=== PATIENT | female | born 1990 | race Caucasian/White ===

== ENCOUNTER 2016-10-03 19:00 | Emergency (ER) | payer OTHER ==
[~2016-10-03] VITALS: Ht 167.6 cm; Wt 126.3 kg
[~2016-10-03 19:00] MED LIST: ADDERALL5 MG PO; AMOXICILLIN500 M1 PO; Chromagen, Feogen, M PO; IBUPROFEN800 MG PO; Motrin PO; NO HOME MEDS; NOHOMEMEDS; PRENATAL TABLE1 EAC3 PO; SINGULAIR10 MG PO; SINGULAIR5 MG PO; TYLENOL EXTRA500 MG PO
[2016-10-03 20:25] VITALS: BP 120/75
== END 2016-10-03 20:26 | disposition home or self-care (01) ==
LOC: EME 19:00
DX: O9A.212 Injury, poisoning and certain other consequences of external causes complicating pregnancy, second trimester (principal); S06.0X0A Concussion without loss of consciousness, initial encounter; Y04.2XXA Assault by strike against or bumped into by another person, initial encounter; Z87.891 Personal history of nicotine dependence
CPT/HCPCS: 99281; 99283

== ENCOUNTER → 2016-11-27 | Outpatient (CLI) | payer OTHER ==
[~2016-11-27] VITALS: Ht 167.6 cm; Wt 126.0 kg
[2016-11-27 10:53] VITALS: BP 146/89
== END | disposition home or self-care (01) ==
LOC: IVINF 10:48
DX: Z31.82 Encounter for Rh incompatibility status (principal)
CPT/HCPCS: 96372; J2790

== ENCOUNTER 2016-12-13 22:18 | Outpatient (CLI) | payer OTHER ==
[~2016-12-13] VITALS: Ht 167.6 cm; Wt 127.0 kg
[2016-12-13 22:44] VITALS: BP 111/56
== END 2016-12-13 23:45 | disposition home or self-care (01) ==
LOC: LDRP-OP → 2WEST 22:20 → LDRP-OP 03-22 14:54
DX: O26.892 Other specified pregnancy related conditions, second trimester (principal); Z3A.30 30 weeks gestation of pregnancy
CPT/HCPCS: 59025; G0378

== ENCOUNTER 2016-12-19 15:02 | Outpatient (CLI) | payer OTHER ==
[~2016-12-19] VITALS: Ht 167.6 cm; Wt 125.6 kg
[2016-12-19 15:17] VITALS: BP 108/65
[2016-12-19 17:29] VITALS: BP 115/66
== END 2016-12-19 19:20 | disposition short-term general hospital (02) ==
LOC: LDRP-OP 15:02 → 2WEST 15:03 → LDRP-OP 03-22
DX: O26.893 Other specified pregnancy related conditions, third trimester (principal); Z3A.31 31 weeks gestation of pregnancy; Z86.19 Personal history of other infectious and parasitic diseases
CPT/HCPCS: 59025; G0378; J0702; J7120

== ENCOUNTER 2017-05-11 12:03 | Emergency (ER) | payer OTHER ==
[~2017-05-11] VITALS: Ht 167.6 cm; Wt 117.1 kg
[2017-05-11 12:33] VITALS: BP 119/80
== END 2017-05-11 15:12 | disposition left against medical advice (07) ==
LOC: EME 12:03
DX: N93.8 Other specified abnormal uterine and vaginal bleeding (principal); Z53.21 Procedure and treatment not carried out due to patient leaving prior to being seen by health care provider
CPT/HCPCS: 99281; 99282